=== PATIENT | female | born 1995 | race Caucasian/White ===

== ENCOUNTER 2018-09-16 09:12 | Outpatient (CLI) | payer OTHER | END 2018-09-16 23:59 | disposition home or self-care (01) | LOC: CFH 09:12 | PROVIDERS: ATTEND Chiropractor | DX: M99.04 Segmental and somatic dysfunction of sacral region (principal); M99.02 Segmental and somatic dysfunction of thoracic region; M99.03 Segmental and somatic dysfunction of lumbar region | CPT/HCPCS: 72040; 72072; 72100; 72170 ==